=== PATIENT | male | born 1990 | race Two or more races ===

== ENCOUNTER 2018-12-01 16:37 | Emergency (ER) | payer SELFPAY ==
[~2018-12-01] VITALS: Ht 170.2 cm; Wt 89.0 kg
[2018-12-01 16:45] VITALS: BP 117/55
== END 2018-12-01 19:05 | disposition left against medical advice (07) ==
LOC: ER 16:37
DX: M54.5 Low back pain (principal); Z53.21 Procedure and treatment not carried out due to patient leaving prior to being seen by health care provider